=== PATIENT | male | born 1955 | race Caucasian/White ===

== ENCOUNTER 2021-06-11 06:22 | Day surgery (SDC) | payer OTHER ==
[~2021-06-11] VITALS: Ht 182.9 cm; Wt 117.7 kg
[2021-06-11] MEDS ORDERED: COZAAR 25MG25 MG/TAB PO (07:03)
[2021-06-11] MEDS ORDERED: CRESTOR5 MG PO (07:04)
[2021-06-11] MEDS ORDERED: RELAFEN 50500 MG/TAB PO (07:04)
[2021-06-11 07:32] VITALS: BP 153/83; PULSE 79; TEMP 97.8
[2021-06-11 09:50] VITALS: BP 130/76; PULSE 70; TEMP 98.3
[2021-06-11 10:05] VITALS: BP 137/80; PULSE 71
[2021-06-11 10:20] VITALS: BP 143/86; PULSE 88
[2021-06-11 10:35] VITALS: BP 135/82; PULSE 79
[2021-06-11 10:50] VITALS: BP 131/77; PULSE 77
== END 2021-06-11 11:40 | disposition home or self-care (01) ==
LOC: SDCO 06:22
DX: N20.1 Calculus of ureter (principal)
CPT/HCPCS: C1769; C2617; J0690; J2405; J2704; J3010; J7120; Q9967